=== PATIENT | female | born 1980 ===

== ENCOUNTER 2018-02-16 09:10 | Inpatient (IN) | payer BC ==
[2018-02-16] VITALS (8 sets, daily range): BP systolic 115–150; BP diastolic 60–97
[~2018-02-16] VITALS: Ht 167.6 cm; Wt 114.8 kg
[2018-02-16] MEDS: LACTATED RINGER'S 1,000 ML IV SCH ×3 (10:29→17:53)
[2018-02-16 10:45] LABS: Basophils # (auto) 0.1 uL; Basophils % (auto) 0.6 % (0.0-2.0); Eosinophils # (auto) 0.1 uL; Eosinophils % (auto) 0.8 % (0.0-7.0); Hematocrit 37.9 % (36.0-46.0); Hemoglobin 12.9 g/dL (12.2-16.2); Lymphocytes # (auto) 1.2 uL; Lymphocytes % (auto) 14.1 % (10.0-50.0); Mean Corpuscular Hemoglobin 30.7 pg (28.0-32.0); Mean Corpuscular Volume 90.3 fL (80.0-100.0); Monocytes # (auto) 0.4 uL; Monocytes % (auto) 4.7 % (0.0-12.0); Neutrophils # (auto) 7.1 uL; Neutrophils % (auto) 79.8 % (37.0-80.0); Nucleated Red Blood Cells % 0.1 %; Platelet Count (auto) 226 10^3/uL (140-450); Red Blood Cells 4.19 10^6/uL (4.0-5.20); Red Cell Distribution Width 13.6 % (11.8-14.3); White Blood Cell 8.9 10^3/uL (4.4-10.8)
[2018-02-16 10:59] LABS: INR 0.87 (0.9-1.15); Partial Thromboplastin Time 26.4 sec (23.78-33.04); Prothrombin Time 9.4 sec (9.27-12.13)
[2018-02-16] MEDS ORDERED: PRENPAK46 OR (10:59)
[2018-02-16 11:03] LABS: Albumin 2.4 g/dL (3.4-5.0); BUN/Creatinine Ratio 15.1; Bilirubin, Total 0.3 mg/dL (0.2-1.0); Calcium 8.6 mg/dL (8.5-10.1); Potassium 4.1 mmol/L (3.5-5.1); Total Protein 6.7 g/dL (6.4-8.2)
[2018-02-16 11:15] LABS: Urine Amorphous Crystal FEW /hpf (None Seen); Urine Bacteria FEW /hpf (None Seen); Urine Blood Negative /uL (Negative); Urine Mucus FEW (None Seen); Urine Specific Gravity 1.017 (1.001-1.035); Urine WBC 1 /hpf (0 - 5)
[2018-02-16] MEDS ORDERED: TETRACAINE 1% INJ 2 ML VIAL IJ ONE ×2 (12:03→13:09)
[2018-02-16] MEDS ORDERED: MORPHINE SULF(PF) 0.5MG/ML 10ML VIAL ONE (13:11)
[2018-02-16] MEDS ORDERED: fentaNYL CITRATE 100 MCG/2 ML VL ONE (13:12)
[2018-02-16] MEDS ORDERED: MIDAZOLAM HCL 1MG/1ML-2 ML VIAL ONE (13:12)
[2018-02-16] MEDS ORDERED: ceFAZolin 1GM VL ONE (13:27)
[2018-02-16] MEDS ORDERED: OXYTOCIN 10 UNIT/ML 10ML VIAL ONE (13:34)
[2018-02-16] MEDS ORDERED: KETOROLAC TROMETH 30 MG/ML 1ML VIAL IV PRN (14:15)
[2018-02-16] MEDS ORDERED: NALBUPHINE HCL 10 MG/1ml INJECTION SUBCUT ONE (14:15)
[2018-02-16] MEDS ORDERED: NALOXONE HCL 0.4 MG/ML VIAL IV PRN (14:15)
[2018-02-16] MEDS ORDERED: HYDROmorphone HCL 2 MG/ML VL IV PRN (14:15)
[2018-02-16] MEDS ORDERED: DEXAMETHASONE SOD PHOS 10MG/1ML VIAL INJ IV PRN (14:15)
[2018-02-16] MEDS ORDERED: ONDANSETRON HCL 4 MG/2 ML VIAL IV PRN ×2 (14:15→15:00)
[2018-02-16] MEDS ORDERED: ePHEDrine SULFATE 50 MG/ML AMP IV PRN (14:15)
[2018-02-16] MEDS ORDERED: LABETALOL HCL 5 MG/ML 4ML SYRINGE IV PRN (14:15)
[2018-02-16] MEDS ORDERED: diphenhdrAMINE HCL 50 MG/1 ML VL IV PRN (14:15)
[2018-02-16] MEDS ORDERED: LACTATED RINGER'S 1,000 ML IV SCH (14:49)
[2018-02-16] MEDS ORDERED: MORPHINE SULFATE 10 MG/ML INJ 1ML SDV IV PRN (15:00)
[2018-02-16] MEDS ORDERED: ceFAZolin 1GM/100ML 50 ML IV SCH (15:00)
[2018-02-16 15:26] LABS: Basophils # (auto) 0.1 uL; Basophils % (auto) 1.2 % (0.0-2.0); Eosinophils # (auto) 0.1 uL; Eosinophils % (auto) 0.9 % (0.0-7.0); Hemoglobin 12.4 g/dL (12.2-16.2); Lymphocytes # (auto) 1.4 uL; Lymphocytes % (auto) 12.6 % (10.0-50.0); Mean Corpuscular Hgb Conc. 33.7 g/dL (32.0-36.0); Mean Corpuscular Volume 91.9 fL (80.0-100.0); Monocytes # (auto) 0.6 uL; Monocytes % (auto) 5.3 % (0.0-12.0); Neutrophils # (auto) 8.9 uL; Nucleated Red Blood Cells % 0.1 %; Platelet Count (auto) 208 10^3/uL (140-450); Red Blood Cells 4.02 10^6/uL (4.0-5.20); Red Cell Distribution Width 13.6 % (11.8-14.3); White Blood Cell 11.1 10^3/uL (4.4-10.8)
[2018-02-16] MEDS: KETOROLAC TROMETH 30 MG/ML 1ML VIAL IV SCH (17:49)
[2018-02-16] MEDS: ceFAZolin 1GM/100ML 50 ML IV SCH (22:00)
[2018-02-16] MEDS ORDERED: MORPHINE SULF INJ 2 MG/ML SYRINGE 1ML IV PRN (22:15)
[2018-02-17] VITALS (8 sets, daily range): BP systolic 130–150; BP diastolic 78–96
[2018-02-17] MEDS: KETOROLAC TROMETH 30 MG/ML 1ML VIAL IV SCH (00:30)
[2018-02-17 04:09] LABS: RPR Non Reactive (Non Reactive)
[2018-02-17] MEDS: ceFAZolin 1GM/100ML 50 ML IV SCH ×2 (05:54→14:07)
[2018-02-17 07:41] LABS: Basophils # (auto) 0 uL; Basophils % (auto) 0.5 % (0.0-2.0); Eosinophils # (auto) 0.1 uL; Eosinophils % (auto) 0.6 % (0.0-7.0); Hematocrit 33.5 % (36.0-46.0); Hemoglobin 11.6 g/dL (12.2-16.2); Lymphocytes # (auto) 1.7 uL; Lymphocytes % (auto) 17.2 % (10.0-50.0); Mean Corpuscular Hgb Conc. 34.7 g/dL (32.0-36.0); Mean Corpuscular Volume 89.3 fL (80.0-100.0); Monocytes # (auto) 0.7 uL; Monocytes % (auto) 6.6 % (0.0-12.0); Neutrophils # (auto) 7.6 uL; Neutrophils % (auto) 75.1 % (37.0-80.0); Platelet Count (auto) 215 10^3/uL (140-450); Red Blood Cells 3.75 10^6/uL (4.0-5.20); Red Cell Distribution Width 13.9 % (11.8-14.3); White Blood Cell 10.1 10^3/uL (4.4-10.8)
[2018-02-17] MEDS ORDERED: SIMETHICONE 80 MG CHEWABLE TABLET PO PRN ×2 (10:15→17:00)
[2018-02-17] MEDS ORDERED: HYDROcodone-ACET 5/325MG TAB PO PRN ×2 (10:15)
[2018-02-17] MEDS: DOCUSATE SOD 100 MG CAP PO SCH ×2 (11:21→22:30)
[2018-02-17] MEDS: IBUPROFEN 800 MG TAB PO PRN ×2 (11:28→22:30)
[2018-02-17] MEDS ORDERED: DOCUSATE SOD 100 MG CAP PO SCH (22:00)
[2018-02-18 04:24] VITALS: BP 130/78
[2018-02-18] MEDS: IBUPROFEN 800 MG TAB PO PRN (06:05)
[2018-02-18 07:00] VITALS: BP 130/66
[2018-02-18] MEDS: DOCUSATE SOD 100 MG CAP PO SCH (10:29)
[2018-02-18 11:00] VITALS: BP 147/94
[2018-02-18 15:00] VITALS: BP 108/65
== END 2018-02-18 18:18 | disposition left against medical advice (07) | DRG 766 ==
LOC: LDRP 09:10
PROVIDERS: ADMIT Specialist; ATTEND Specialist
PROC: 0UB70ZZ Excision of Bilateral Fallopian Tubes, Open Approach (ICD-10-PCS; 2018-02-16)
PROC: 10D00Z1 Extraction of Products of Conception, Low, Open Approach (ICD-10-PCS; principal; 2018-02-16 13:01)
DX: O36.63X0 Maternal care for excessive fetal growth, third trimester, not applicable or unspecified (principal); D25.9 Leiomyoma of uterus, unspecified; O13.4 Gestational [pregnancy-induced] hypertension without significant proteinuria, complicating childbirth; O34.13 Maternal care for benign tumor of corpus uteri, third trimester; O76 Abnormality in fetal heart rate and rhythm complicating labor and delivery; O69.81X0 Labor and delivery complicated by cord around neck, without compression, not applicable or unspecified; Z53.21 Procedure and treatment not carried out due to patient leaving prior to being seen by health care provider; Z37.0 Single live birth; Z3A.40 40 weeks gestation of pregnancy; Z80.3 Family history of malignant neoplasm of breast; Z30.2 Encounter for sterilization; Z82.49 Family history of ischemic heart disease and other diseases of the circulatory system
CPT/HCPCS: 36415; 51702; 59025; 80053; 81001; 85025; 85610; 85730; 86592; 86850; 86900; 86901; 94760; 94762; 96361; 96365; 96366; 96374; J0690; J1885; J2250; J2590